=== PATIENT | male | born 1985 | race Asian ===

== ENCOUNTER 2017-10-06 14:25 | Emergency (ER) | payer MEDICAID ==
[~2017-10-06] VITALS: Ht 167.6 cm; Wt 63.5 kg
[2017-10-06 14:31] VITALS: BP 138/85
[2017-10-06] MEDS ORDERED: Norco 5mg/325mg tab PO ONE (14:45)
[2017-10-06] MEDS ORDERED: Tetanus/Diptheria/Pertussis Vaccine 0.5ml Syr IM ONE (14:45)
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
[2017-10-06] MEDS ORDERED: IBUPROFEN600 MG ORAL (16:23)
[2017-10-06] MEDS ORDERED: NORCO 5-325 TA1 EACH ORAL (16:23)
[2017-10-06] MEDS ORDERED: Bacitracin Oint UD TOPIC ONE (16:30)
[2017-10-06 16:49] VITALS: BP 138/85
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
== END 2017-10-06 16:59 | disposition home or self-care (01) ==
LOC: EDBD 14:25 → EMR 15:17
DX: S52.572A Other intraarticular fracture of lower end of left radius, initial encounter for closed fracture (principal); S52.615A Nondisplaced fracture of left ulna styloid process, initial encounter for closed fracture; S62.292A Other fracture of first metacarpal bone, left hand, initial encounter for closed fracture; S62.512A Displaced fracture of proximal phalanx of left thumb, initial encounter for closed fracture; V43.52XA Car driver injured in collision with other type car in traffic accident, initial encounter; S61.012A Laceration without foreign body of left thumb without damage to nail, initial encounter; Y92.410 Unspecified street and highway as the place of occurrence of the external cause; Z23 Encounter for immunization
CPT/HCPCS: 12002; 73110; 73130; 90471; 90715; 99283; Z7502

== ENCOUNTER 2017-10-13 10:42 | Emergency (ER) | payer MEDICAID ==
[~2017-10-13] VITALS: Ht 162.6 cm; Wt 61.2 kg
[~2017-10-13 10:42] MED LIST: IBUPROFEN600 MG ORAL; NORCO 5-325 TA1 EACH ORAL
[2017-10-13 11:01] VITALS: BP 119/76
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
[2017-10-13] MEDS ORDERED: CIPROFLOXACIN500 M2 ORAL (11:51)
[2017-10-13] MEDS ORDERED: NORCO 5-325 TA1 EACH ORAL (12:13)
[2017-10-13] MEDS ORDERED: IBUPROFEN600 MG ORAL (12:13)
[2017-10-13] MEDS ORDERED: HYDROcodone/Acetamin 10/325 tab ORAL ONE (12:15)
[2017-10-13 12:35] VITALS: BP 119/76
== END 2017-10-13 12:15 | disposition home or self-care (01) ==
LOC: EMR 11:07
DX: S61.412D Laceration without foreign body of left hand, subsequent encounter (principal); S62.92XD Unspecified fracture of left hand, subsequent encounter for fracture with routine healing; X58.XXXD Exposure to other specified factors, subsequent encounter; Z48.02 Encounter for removal of sutures
CPT/HCPCS: 99282

== ENCOUNTER 2017-10-18 15:05 | Emergency (ER) | payer MEDICAID ==
[~2017-10-18] VITALS: Ht 162.6 cm; Wt 59.0 kg
[~2017-10-18 15:05] MED LIST changes: +CIPROFLOXACIN500 M2 ORAL
[2017-10-18 15:17] VITALS: BP 125/75
--- NOTE | 2017-10-18 15:46 | Emergency Room Report ---
History of Present Illness General Chief Complaint: Wound Recheck/Suture Removal Source: Patient Present Illness HPI 32-year-old male presents emergency department for wound check and suture removal. Patient denies fevers, chills, erythema, discharge or bleeding. Patient denies new trauma or fall. Denies pain at this time. reports he has cardiovascular specialist appt. this week. Allergies: Coded Allergies: No Known Allergies (Unverified , 10/06/17) Patient History Past Medical History: see triage record Past Surgical History: none Pertinent Family History: none Immunizations: UTD Reviewed Nursing Documentation: PMH: Agreed; PSxH: Agreed Nursing Documentation-PMH Past Medical History: No History, Except For Review of Systems All Other Systems: negative except mentioned in HPI Physical Exam Vital Signs Date Time Temp Pulse Resp B/P (MAP) Pulse Ox O2 Delivery O2 Flow Rate FiO2 10/18/17 15:11 97.8 65 14 125/75 95 Room Air 97.9 Sp02 EP Interpretation: reviewed, normal General Appearance: no apparent distress, alert, GCS 15, non-toxic Head: normocephalic, atraumatic Eyes: bilateral eye normal inspection, bilateral eye PERRL ENT: hearing grossly normal, normal voice Neck: full range of motion Respiratory: lungs clear, normal breath sounds, speaking full sentences Cardiovascular #1: regular rate, rhythm, normal capillary refill Musculoskeletal: back normal, gait/station normal, swelling - left wrist, other - NVI left hand, initially immobilized in thumb spika, tender - left wrist Neurologic: alert, oriented x3, responsive, motor strength/tone normal, sensory intact, normal gait, speech normal, grossly normal Psychiatric: judgement/insight normal Skin: normal color, no rash, warm/dry, well hydrated, wd healing/no infection noted - healing laceration of the left palm, With swelling and ttp to the left wrist. pt. NVI no evidence of infection at this time. Lymphatic: no adenopathy Medical Decision Making PA Attestation Dr. Marin is my supervising Physician whom patient management has been discussed with. Diagnostic Impression: Primary Impression: Encounter for wound re-check Additional Impression: History of wrist fracture ER Course 32-year-old male presents emergency department for wound check and suture removal. Patient denies fevers, chills, erythema, discharge or bleeding. Patient denies new trauma or fall. Ddx considered but are not limited to laceration, tendon injury, cellulitis, dehiscence. Vital signs: are WNL, pt. is afebrile H&PE are most consistent with: healing laceration of the left palm, With swelling and ttp to the left wrist. pt. NVI no evidence of infection at this time. - Review of this pt. previous visit and imaging pt. has significant wrist fracture. ORDERS: none required at this time, the diagnosis is clinical ED INTERVENTIONS: - 2 Sutures removed. the laceration started to open up and therefore remaining sutures to stay. Pt. has follow up at the end of this week with ortho. -Sterile dressing is applied. -Thumb Spika Splint applied by fleet technician. Pt. remains neurovascularly intact. DISCHARGE: At this time pt. is stable for d/c to home. Will provide printed patient care instructions, and any necessary prescriptions. Care plan and follow up instructions have been discussed with the patient prior to discharge. Last Vital Signs Date Time Temp Pulse Resp B/P (MAP) Pulse Ox O2 Delivery O2 Flow Rate FiO2 10/18/17 15:17 97.9 14 125/75 95 Room Air 97.9 10/18/17 15:11 65 Disposition: HOME, SELF-CARE Condition: Stable Patient Instructions: Wound Check Additional Instructions: Take previously prescribed medications as directed. Follow up with [facility] in 3-5 days for additional eval and removal of remaining sutures. If symptoms persist MRI may be required at the discretion of your PCP or Ortho Specialist. --Please review list of primary care clinics, if you do not already have a primary care provider who can give you an Orthopedic Referral. Return sooner to ED if new symptoms occur, or current symptoms become worse. - Please note that this Emergency Department Report was dictated using Shwrümcutting table operator technology software, occasionally this can lead to erroneous entry secondary to interpretation by the dictation equipment. Renetta Kemp Oct 18, 2017 15:46
[2017-10-18 16:03] VITALS: BP 125/75
== END 2017-10-18 16:04 | disposition home or self-care (01) ==
LOC: EMR 15:45
DX: S61.412D Laceration without foreign body of left hand, subsequent encounter (principal); S62.102D Fracture of unspecified carpal bone, left wrist, subsequent encounter for fracture with routine healing; X58.XXXD Exposure to other specified factors, subsequent encounter
CPT/HCPCS: 99282